=== PATIENT | male | born 1985 | race Caucasian/White ===

== ENCOUNTER 2016-08-29 13:53 | Emergency (ER) | payer SELFPAY ==
[~2016-08-29] VITALS: Ht 157.5 cm; Wt 58.0 kg
[2016-08-29 14:01] VITALS: Ht 157.5 cm; Wt 58.0 kg
[2016-08-29] MEDS ORDERED: CARB15DR48 RIGHT EAR (14:17)
--- NOTE | 2016-08-29 14:43 | ERD ---
ER Documentation Chief Complaint Date/Time DATE: 08/29/16 TIME: 14:40 Chief Complaint right ear pain from a q-tip today HPI This is a 30-year-old male presents to the ER with right ear pain after he was cleaning his ear with a Q-tip yesterday. Patient states that he cannot hear from his right ear. Patient denies any discharge or bleeding from his ear. He denies any fevers or chills. Pain is throbbing in quality. It is nonradiating. He has not tried anything for the pain. Patient tried to wash out his ear however did not work. ROS 12 point review of systems was done, all negative except per HPI. Medications Home Meds Active Scripts Carbamide Peroxide* (Debrox*) 6.5% - 15 Ml Drops, 10 DROP RIGHT EAR BID for 7 Days, BOTTLE Prov:RIN ESCOBAR Brandi 08/29/16 PMhx/Soc Medical and Surgical Hx: pt denies Medical Hx, pt denies Surgical Hx Physical Exam Vitals Vital Signs Date Time Temp Pulse Resp B/P Pulse Ox O2 Delivery O2 Flow Rate FiO2 08/29/16 14:01 97.5 70 18 122/76 99 Physical Exam GENERAL: The patient is well-developed, well-nourished, in no acute distress. HEENT: Atraumatic. There is cerumen impaction right ear canal. I am unable to visualize tympanic membrane there is some cotton from in there. RESPIRATORY: Clear to auscultation bilaterally. There are no rales, wheezes or rhonchi. HEART: Regular rate and rhythm. No murmurs, clicks, rubs or gallops. NEUROLOGIC: Alert and oriented. SKIN: There is no rash. The skin is warm and dry. Procedures/MDM This is a 30-year-old male presents to the ER with right ear pain. At this time patient does have cerumen impaction, I am unable to see tympanic membrane and therefore unable to rule out otitis media or tympanic membrane perforation. Patient will be sent home with Debrox for cerumen impaction. He is to follow- up with his primary care doctor within 1-2 days return to ER sooner if symptoms worsen. My medical decision making shared with the patient he understands and agrees with plan. Departure Diagnosis: Primary Impression: Cerumen impaction Condition: Stable Patient Instructions: Cerumen Impaction, Home Care Additional Instructions: Call your primary care doctor TOMORROW for an appointment during the next 1-2 days.See the doctor sooner or return here if your condition worsens before your appointment time. RIN ESCOBAR Aug 29, 2016 14:43
== END 2016-08-29 15:34 | disposition home or self-care (01) ==
LOC: FTE 13:53
DX: H61.21 Impacted cerumen, right ear (principal)
CPT/HCPCS: 99283

== ENCOUNTER 2016-09-05 07:49 | Emergency (ER) | payer SELFPAY ==
[~2016-09-05] VITALS: Wt 58.0 kg
[~2016-09-05 07:49] MED LIST: CARB15DR48 RIGHT EAR
[2016-09-05] MEDS ORDERED: AMO500 PO (09:05)
--- NOTE | 2016-09-05 09:14 | ERD ---
ER Documentation Chief Complaint Date/Time DATE: 09/05/16 TIME: 09:08 Chief Complaint right ear hearing loss x7 days, no pain HPI This 30-year-old male presents to the ER with inability here in his right ear for 7 days. He denies any pain. He was seen here one week ago and diagnosed with cerumen impaction. He was given Debrox eardrops at that time. Has been using the eardrops but has not been flushing his ear in any way. He denies any pain. He has no other symptoms. ROS All systems reviewed and are negative except as per history of present illness. Medications Home Meds Active Scripts Amoxicillin* (Amoxicillin*) 500 Mg Cap, 500 MG PO TID for 7 Days, CAP Prov:JONATHAN ROSADO DO 09/05/16 Carbamide Peroxide* (Debrox*) 6.5% - 15 Ml Drops, 10 DROP RIGHT EAR BID for 7 Days, BOTTLE Prov:RIN ESCOBAR 08/29/16 PMhx/Soc Medical and Surgical Hx: pt denies Medical Hx, pt denies Surgical Hx Hx Alcohol Use: Yes (OCCASIONAL) Hx Substance Use: No Hx Tobacco Use: Yes (OCCASIONAL) Smoking Status: Current some day smoker Physical Exam Vitals Vital Signs Date Time Temp Pulse Resp B/P Pulse Ox O2 Delivery O2 Flow Rate FiO2 09/05/16 07:54 982.1 59 17 116/72 98 Physical Exam Const: [] No distress Head: Atraumatic Eyes: Normal Conjunctiva ENT: Normal External Ears, Nose and Mouth. Right tympanic membrane with cerumen impaction completely obscuring the tympanic membrane. Left tympanic membrane with slight oral scarring to the 8 o'clock position of the dependent membrane otherwise clear with no signs of bulging or erythema. Procedures/MDM Patient with cerumen impaction if using Debrox drops. It was irrigated in emergency room an large clot of wax rooms removed. There is still some wax with slight white crusting to it present on the tympanic membrane but the top affect and remain is visible, it is erythematous and dull. Patient's hearing is also improved he says he still has decreased hearing in that ear. For this reason I' m going to discharge him with an ENT referral. Patient does have insurance. I'm instructing him to call the number on the insurance card for referral for ENT otherwise have given him follow-up with Dr. Ballard. I'm also discharging with amoxicillin for the erythematous swollen the parents of the tympanic membrane because I would not want an infection to get any worse. The swelling may be due to the irrigation itself. Departure Diagnosis: Primary Impression: Otitis media Additional Impressions: Hearing loss Impacted cerumen of right ear Condition: Stable Patient Instructions: Understanding Hearing Loss, Cerumen Impaction, Home Care , Otitis Media, Abx Tx (Adult) Referrals: KAT BALLARD MD Additional Instructions: Call your insurance card TOMORROW for an appointment with an ENT doctor during the next 1 WEEK.Tell the city secretary that you were referred from this facility. See the doctor sooner or return here if your condition worsens before your appointment time. JONATHAN ROSADO DO Sep 05, 2016 09:14
== END 2016-09-05 09:20 | disposition home or self-care (01) ==
LOC: FTE 07:49
DX: H66.91 Otitis media, unspecified, right ear (principal); H61.21 Impacted cerumen, right ear; F17.210 Nicotine dependence, cigarettes, uncomplicated

== ENCOUNTER 2018-10-01 21:18 | Emergency (ER) | payer OTHER ==
[~2018-10-01] VITALS: Ht 162.6 cm; Wt 62.7 kg
[~2018-10-01 21:18] MED LIST changes: +AMOX500C2 PO; -CARB15DR48 RIGHT EAR; +CARB15DR50 RIGHT EAR
[2018-10-01 21:29] VITALS: Ht 162.6 cm; Wt 62.7 kg
[2018-10-01] MEDS ORDERED: KETOROLAC 30 MG INJ IM STA (22:11)
--- NOTE | 2018-10-01 22:29 | ERD ---
ER Documentation Chief Complaint Chief Complaint pain right upper back since 1600. denies trauma HPI 32-year-old male no significant past medical history presents with right-sided flank and back pain status post lifting his adult sister. He states that he carried his sister up some stairs and into bed. He states that this occurred around 1. Around 4 PM he noted a spasm and pain to the right flank and thoracolumbar back. The pain is worse with rotational movement worse with touch. He denies abdominal pain, no migratory pain, no numbness or tingling. No dysuria urgency or frequency and no hematuria. No history of kidney stones. He took some Motrin with moderate relief. ROS All systems reviewed and are negative except as per history of present illness. Medications Home Meds Active Scripts Amoxicillin* (Amoxicillin*) 500 Mg Cap, 500 MG PO TID for 7 Days, CAP Prov:JONATHAN ROSADO DO 09/05/16 Carbamide Peroxide* (Debrox*) 6.5% - 15 Ml Drops, 10 DROP RIGHT EAR BID for 7 Days, BOTTLE Prov:RIN ESCOBAR 08/29/16 Allergies Allergies: Coded Allergies: No Known Drug Allergies (Verified Allergy, Unknown, 10/01/18) PMhx/Soc Medical and Surgical Hx: pt denies Medical Hx, pt denies Surgical Hx Hx Alcohol Use: Yes (OCCASIONAL) Hx Substance Use: No Hx Tobacco Use: Yes (OCCASIONAL) Smoking Status: Current some day smoker FmHx Family History: No diabetes Physical Exam Vitals Vital Signs Date Temp Pulse Resp B/P (MAP) Pulse Ox O2 O2 Flow FiO2 Time Delivery Rate 10/01/18 98.5 85 18 138/84 99 21:29 (102) Physical Exam General: Well developed, well nourished, no acute distress Head: Normocephalic, atraumatic. Eyes: Pupils equally reactive, EOM intact ENT: Moist mucous membranes Neck: Supple, no lymphadenopathy Respiratory: Lungs clear bilaterally, no distress Cardiovascular: RRR, no murmurs, rubs, or gallops Abdominal: Soft, non-tender, non-distended, no peritoneal signs, no tenderness to the right lower quadrant Back: Reproducible soft tissue tenderness to the thoracolumbar paraspinal muscles of the back. No CVAT. : Deferred MSK: No edema, no unilateral swelling, 5/5 strength Neurologic: Alert and oriented, moving all extremities, normal speech, no focal weakness, no cerebellar signs Skin: No rash Psych: Normal mood Results 24 hrs Current Medications Medications Dose Sig/Tavo Start Time Status Last (Trade) Ordered Route PRN Stop Time Admin Dose Reason Admin Ketorolac 30 mg ONCE STAT 10/01/18 DC 10/01/18 Tromethamine IM 22:11 10/01/18 22:17 (Toradol) 22:12 Diazepam 5 mg ONCE ONCE 10/01/18 10/01/18 (Valium) PO 22:30 10/01/18 22:17 22:31 Procedures/MDM MEDICAL DECISION MAKING: The patient's low back pain is unlikely related to serious etiology. The patient exhibits no clinical signs or symptoms and has no history or risk factors to suggest cauda equina, cord compression, epidural abscess, epidural hematoma, acute aortic aneurysm or dissection. The patient's clinical exam and history is very consistent with muscular skeletal etiology. The patient is clear trigger, reproducible symptoms with no signs or symptoms concerning for ureterolithiasis, pyelonephritis, vascular process or acute intra-abdominal process. No indication for CT imaging. Patient will benefit from symptom control, muscle relaxant medication. ER COURSE: * Patient given Toradol and Valium * symptoms improving. Safe ride home. * Patient is safe for discharge at this time. Return precautions were discussed and understood. CONSULTATION: None DISPOSITION PLAN: The patient does not have an identifiable emergent medical condition that warrants inpatient hospitalization at this time. The patient is deemed safe for discharge with outpatient follow-up. We discussed follow up with the patient's primary care doctor within 24 to 48 hours as needed. We also discussed return to the emergency room for worsening symptoms or worsening condition. Outpatient referral: None required Discharge Medications: Motrin and Valium Departure Diagnosis: Primary Impression: Acute thoracic myofascial strain Encounter type: initial encounter Qualified Codes: S29.019A - Strain of muscle and tendon of unspecified wall of thorax, initial encounter Condition: Stable LORI WATSON MD October 01, 2018 22:29
[2018-10-01] MEDS ORDERED: IBUP800T48 PO (22:30)
[2018-10-01] MEDS ORDERED: DIAZ5TAB PO (22:30)
[2018-10-01] MEDS ORDERED: DIAZEPAM 5 MG TAB PO ONE (22:30)
[2018-10-01] MEDS ORDERED: HYDROCODONE/APAP (10/325) TAB PO ONE (23:00)
[2018-10-01 23:52] VITALS: BP 113/77; PULSE 86; RESP 19
== END 2018-10-01 23:58 | disposition home or self-care (01) ==
LOC: E/R 21:18
DX: S29.019A Strain of muscle and tendon of unspecified wall of thorax, initial encounter (principal); F17.210 Nicotine dependence, cigarettes, uncomplicated; X50.0XXA Overexertion from strenuous movement or load, initial encounter; Y92.9 Unspecified place or not applicable
CPT/HCPCS: 96372; J1885; Z7502; Z7610